=== PATIENT | male | born 1990 | race African-American/Black ===

== ENCOUNTER 2023-10-12 19:56 | Emergency (ER) | payer OTHER ==
[~2023-10-12] VITALS: Ht 185.4 cm; Wt 70.0 kg
[2023-10-12 20:01] VITALS: BP 140/82; PULSE 86; RESP 18; TEMP 98.4; O2SAT 97
[2023-10-12] MEDS: NEOMYCIN-BACITRACIN-POLYM UNITDOSE PKG TOP OINT TOP ONE (22:25)
[2023-10-12] MEDS: HYDROcodone-ACET 10/325MG TAB PO ONE (22:29)
[2023-10-12] MEDS: KETOROLAC TROMETH 60MG/2ML VIAL IM ONE (22:30)
[2023-10-12] MEDS: TETANUS-DIPTH-ACEL PERTUSSIS 0.5ML SYR Tdap IM ONE (22:30)
== END 2023-10-12 22:45 | disposition home or self-care (01) ==
LOC: EDBD 19:56 → ER 19:56 → EEVIPCON 19:56 → ER 22:45
DX: S16.1XXA Strain of muscle, fascia and tendon at neck level, initial encounter (principal); S00.83XA Contusion of other part of head, initial encounter; S80.12XA Contusion of left lower leg, initial encounter; S80.11XA Contusion of right lower leg, initial encounter; Y04.2XXA Assault by strike against or bumped into by another person, initial encounter; Y93.89 Activity, other specified; Y92.89 Other specified places as the place of occurrence of the external cause; Y99.8 Other external cause status
CPT/HCPCS: 70450; 70486; 72125; 73700; 90471; 90715; 96372; 99285; J1885